=== PATIENT | male | born 1960 | race Caucasian/White ===

== ENCOUNTER 2017-09-06 18:49 | Emergency (ER) | payer OTHER ==
[~2017-09-06] VITALS: Ht 162.6 cm; Wt 72.7 kg
[2017-09-06 18:51] VITALS: BP 152/88
[2017-09-06] MEDS ORDERED: FINA5TAB4 PO (19:31)
[2017-09-06] MEDS ORDERED: AMIT25TA PO (19:31)
[2017-09-06] MEDS ORDERED: BISO5TAB2 PO (19:31)
[2017-09-06] MEDS ORDERED: AMLO10TA2 PO (19:31)
[2017-09-06] MEDS ORDERED: OXYC-302 PO (19:31)
[2017-09-06] MEDS ORDERED: TAMS0.4C2 PO (19:31)
[2017-09-06] MEDS ORDERED: SODIUM CHLORIDE PO (19:31)
[2017-09-06] MEDS ORDERED: GABA300C10 PO (19:31)
[2017-09-06] MEDS ORDERED: DIAZEPAM 5 MG TABLET ONE (19:40)
[2017-09-06] MEDS ORDERED: DIAZEPAM 5 MG TABLET PO ONE (20:00)
== END 2017-09-06 20:27 | disposition home or self-care (01) ==
LOC: ED 20:15
DX: S39.012A Strain of muscle, fascia and tendon of lower back, initial encounter (principal); M54.18 Radiculopathy, sacral and sacrococcygeal region; I10 Essential (primary) hypertension; X58.XXXA Exposure to other specified factors, initial encounter; Y93.89 Activity, other specified; Y99.8 Other external cause status; Y92.89 Other specified places as the place of occurrence of the external cause
CPT/HCPCS: 72110; 99284

== ENCOUNTER 2020-05-08 10:20 | Emergency (ER) | payer OTHER ==
[~2020-05-08] VITALS: Ht 165.1 cm; Wt 65.8 kg
[~2020-05-08 10:20] MED LIST: AMIT25TA PO; AMLO10TA8 PO; BISO5TAB8 PO; FINA5TAB4 PO; GABA300C10 PO; OXYC-302 PO; SODIUM CHLORIDE PO; TAMS0.4C2 PO
[2020-05-08 11:25] LABS: ALBUMIN 3.6 g/dL (3.4-5.0); ANION GAP 5 mmol/L (5-15); CALCIUM 9.4 mg/dL (8.5-10.1); CHLORIDE 97 mmol/L (98-107); CREATININE 0.95 mg/dL (0.7-1.3)
[2020-05-08 11:29] LABS: BASOPHILS # (AUTO) 0.02 x10^3/uL (0-0.1); BASOPHILS % (AUTO) 0 % (0-1); EOSINOPHILS # (AUTO) 0.03 x10^3/uL (0-0.4); EOSINOPHILS % (AUTO) 1 % (1-7); LYMPHOCYTES # (AUTO) 0.68 x10^3/uL (1-3.4); LYMPHOCYTES % (AUTO) 17 % (22-44); MD NO; MEAN CORPUSCULAR HEMOGLOBIN 29.6 pg (27.5-34.5); MEAN CORPUSCULAR HGB CONC 33.4 g/dL (33.2-36.2); MEAN PLATELET VOLUME 6.4 fL (7.4-10.4); MONOCYTES # (AUTO) 0.61 x10^3/uL (0.2-0.8); MONOCYTES % (AUTO) 15 % (2-9); NEUTROPHILS # (AUTO) 2.65 x10^3/uL (1.8-6.8); NEUTROPHILS % (AUTO) 67 % (42-75); PLATELET COUNT 380 x10^3/uL (130-400); RED BLOOD COUNT 4.73 x10^6/uL (4.38-5.82)
[2020-05-08] MEDS ORDERED: DEXAMETHASONE 4 MG TABLET ONE (11:53)
[2020-05-08 11:56] VITALS: BP 123/78
--- NOTE | 2020-05-08 11:58 | NUR ---
pt ambulated with pulse ox per md request, pt Spo2 94% while ambulating with no distress. MD notified
[2020-05-08] MEDS ORDERED: DEXAMETHASONE 4 MG TABLET PO ONE (12:00)
[2020-05-08] MEDS ORDERED: ASPIRIN 325 MG TABLET PO ONE (12:30)
[2020-05-08] MEDS ORDERED: ASPIRIN 325 MG TABLET EC ONE (12:36)
== END 2020-05-08 12:46 | disposition home or self-care (01) ==
LOC: ED 10:36
DX: U07.1 COVID-19 (principal); J06.9 Acute upper respiratory infection, unspecified; I10 Essential (primary) hypertension
CPT/HCPCS: 36415; 71045; 80048; 82040; 85025; 99284